=== PATIENT | female | born 1975 | race Caucasian/White ===

== ENCOUNTER 2022-06-29 20:23 | Emergency (ER) | payer BC ==
[2022-06-29 21:56] VITALS: BP 139/59; PULSE 68; O2SAT 100
[2022-06-29] MEDS ORDERED: Augmentin 875-125 Tablet PO ONE (22:29)
[2022-06-29] MEDS ORDERED: Rabavert 2.5 UNITS IM ONE (22:30)
[2022-06-29] MEDS ORDERED: HYPERRAB 300 UNIT/ML 5 ML VIAL IM STA (22:35)
--- NOTE | 2022-06-29 22:47 | ERPHSYRPT ---
- History of Present Illness Time Seen by Provider: 06/29/22 20:46 Source: patient Exam Limitations: no limitations Patient Subjective Stated Complaint: Pt reports being bitten by a stray dog at [address] Pt does have superficial scratches to posterior bilateral h ands. Pt is not having any pain but main concern is that the dog may not have been up to date on vaccinations. Triage Nursing Assessment: Pt ambulated to room. A&O X 3. Skin WNL for race. Pt does have superficial scratches to posterior bilateral hands due to being bitten by a stray dog at [address] Pt is not having any pain but main concern is that the dog may not have been up to date on vaccinations. Physician History: 46 years old female presented in the ER after bit by a stray dog around 8 PM. She has superficial bite tristan and scratches on both dorsum of hands. Minimally pain with palpation. No difficulty movements of hand/fingers. Patient is up-to-date with tetanus. Timing/Duration: hour(s) (2), sudden Quality: painful Severity: mild Location: hands Possible Causes: other Associated Symptoms: rash Allergies/Adverse Reactions: No Known Drug Allergies Allergy (Verified 06/29/22 21:43) Home Medications: Citalopram Hydrobromide 20 mg* [ceLEXa 20 MG] 35 mg PO DAILY 05/07/15 [History] Mirabegron [Myrbetriq] 50 mg PO DAILY 06/29/22 [History] Norethindrone AC-Eth Estradiol [Loestrin 21 1-20 Tablet] 1 tab PO DAILY 06/29/22 [History] Hx Tetanus, Diphtheria Vaccination/Date Given: Yes Hx Influenza Vaccination/Date Given: No Hx Pneumococcal Vaccination/Date Given: No Immunizations Up to Date: Yes Travel Risk - International Travel Have you traveled outside of the country in past 3 weeks: No - Coronavirus Screening Are you exhibiting any of the following symptoms?: No - Vaccine Status Have you recieved a Covid-19 vaccination: Yes Phlebotomist Lab Assistant: Moderna - Vaccination Dates Date of 2cond Vaccination (if applicable): 02/21/21 - Review of Systems Constitutional: No Symptoms Ears, Nose, & Throat: No Symptoms Respiratory: No Symptoms Cardiac: No Symptoms Abdominal/Gastrointestinal: No Symptoms Musculoskeletal: Injury Skin: Skin Lesions Neurological: No Symptoms Hematologic/Lymphatic: No Symptoms Immunological/Allergic: No Symptoms - Past Medical History Pertinent Past Medical History: Yes Neurological History: No Pertinent History ENT History: No Pertinent History Cardiac History: No Pertinent History Respiratory History: No Pertinent History Endocrine Medical History: No Pertinent History Musculoskeletal History: No Pertinent History GI Medical History: No Pertinent History History: No Pertinent History Psycho-Social History: Eating Disorders Female Reproductive Disorders: No Pertinent History - Past Surgical History Past Surgical History: No - Social History Smoking Status: Never smoker Exposure to second hand smoke: No Drug Use: none Patient Lives Alone: Yes - Female History Hx Now: No - Nursing Vital Signs Nursing Vital Signs: Initial Vital Signs Temperature 98.4 F 06/29/22 21:45 Pulse Rate 68 06/29/22 21:45 Respiratory Rate 16 06/29/22 21:45 Blood Pressure 139/59 06/29/22 21:45 O2 Sat by Pulse Oximetry 100 06/29/22 21:45 Pain Scale Pain Intensity 0 - Physical Exam General Appearance: no apparent distress, alert Ears, Nose, Throat Exam: normal ENT inspection Neck Exam: normal inspection, full range of motion Respiratory Exam: normal breath sounds, lungs clear Cardiovascular Exam: regular rate/rhythm, normal heart sounds Extremity Exam: tenderness (Minimal tenderness with multiple bite tristan and scratches on dorsum of hand/knuckles. No active bleeding.) Neurologic Exam: alert, oriented x 3, cooperative, six color press operator II-XII nml as tested Skin Exam: normal color SpO2 Interpretation: normal SpO2: 100 O2 Delivery: Room Air Ordered Tests: Medication Summary Discontinued Medications Generic Name Dose Route Start Last Admin Trade Name Esmer PRN Reason Stop Dose Admin Amoxicillin/Clavulanate Potassium 875 mg 06/29/22 22:29 Amox Tr/Potassium Clavulanate 875 Mg Tablet PO 06/29/22 22:30 STAT ONE Amoxicillin/Clavulanate Potassium Confirm 06/29/22 23:33 Amox Tr/Potassium Clavulanate 875 Mg Tablet Administered 06/29/22 23:34 Dose 875 mg .ROUTE .STK-MED ONE Rabies Immune Globulin 1,120 units 06/29/22 22:35 Rabies Immune Globulin/Pf 1,500 Units/5 Ml Vial IM 06/29/22 22:36 ONCE STA Rabies Vaccine 2.5 units 06/29/22 22:30 Rabies Vac,Pf Chick-Emb Cell 2.5 Units Kit IM 06/29/22 22:31 .ONCE ONE - Progress Progress: unchanged Progress Note: 06/29/22 23:35 Wound is clean, she does not want any pain medication. Unsure about immunization status or dog. Dog is not available for quarantine. We will give postexposure prophylaxis first dose of vaccine along with immunoglobulins and Augmentin. Recommended outpatient follow-up for completion of vaccination series. Discussed signs symptoms of infection/worsening needing return to ER which she seems understanding. Counseled pt/family regarding: lab results, diagnosis - Departure Departure Disposition: Home Clinical Impression: Dog bite Condition: Stable Critical Care Time: No Referrals: SUGAR SANCHEZ [Primary Care Provider] - Follow Up with PCP/3 days Instructions: Animal Bites (DC) Additional Instructions: Take Tylenol/ibuprofen as needed for pain. Keep it clean. Continue with antibiotics. You need 3 more shots of rabies vaccine on July 02 and on July 13 to complete the course of postexposure rabies immunizations. Return to ER for increasing pain swelling, fever chills etc. Prescriptions: Amox Tr/Potass Clav. 875 mg [Augmentin 875-125 Tablet] 875 mg PO BID #14 tablet
[2022-06-29] MEDS ORDERED: Augmentin 875-125 Tablet ONE (23:33)
== END 2022-06-30 00:24 | disposition home or self-care (01) ==
LOC: ED 20:23
DX: S60.572A Other superficial bite of hand of left hand, initial encounter (principal); S60.571A Other superficial bite of hand of right hand, initial encounter; W54.0XXA Bitten by dog, initial encounter; Z79.899 Other long term (current) drug therapy
CPT/HCPCS: 90375; 90471; 90675; 96372; 99283; A9270-GY